=== PATIENT | female | born 1990 | race African-American/Black ===

== ENCOUNTER 2021-06-23 09:06 | Observation (INO) | payer MEDICAID ==
[~2021-06-23] VITALS: Ht 162.6 cm; Wt 59.9 kg
[2021-06-23] MEDS ORDERED: PREN1TAB78 MT (10:04)
[2021-06-23 10:05] LABS: CLARITY URINE CLEAR (CLEAR); COLOR URINE YELLOW (YELLOW); KETONES URINE NEGATIVE (NEGATIVE); LEUKOCYTE ESTERASE URINE NEGATIVE (NEGATIVE); NITRITE URINE NEGATIVE (NEGATIVE); OCCULT BLOOD URINE NEGATIVE (NEGATIVE); PH URINE 7.5 (4.5-8.0); PROTEIN URINE NEGATIVE (NEGATIVE); SPECIFIC GRAVITY URINE 1.022 (1.005-1.030)
== END 2021-06-23 12:45 | disposition home or self-care (01) ==
LOC: 8 EST LDRP 09:06
PROVIDERS: ADMIT Specialist; ATTEND Specialist
DX: O26.892 Other specified pregnancy related conditions, second trimester (principal); R10.30 Lower abdominal pain, unspecified; Z3A.25 25 weeks gestation of pregnancy
CPT/HCPCS: 59025; 76770; 81003; G0378; 99281